=== PATIENT | female | born 1990 | race Caucasian/White ===

== ENCOUNTER → 2016-08-06 | Outpatient (CLI) | payer OTHER ==
[~2016-08-06] MED LIST: ISOVUE-370 76% 100ML VIAL (Q9967) As Ordered ONE
--- NOTE | 2016-08-06 14:18 | REP ---
HYSTEROSALPINGOGRAM: Hysterosalpingogram is performed. Contrast is injected. Spot radiographs are obtained. The uterine cavity demonstrates no definite filling defect. Uterus has an arcuate configuration. There is free flow of contrast through both nondilated fallopian tubes. There is free intraperitoneal spillage bilaterally indicating bilateral fallopian tube patency. IMPRESSION: Arcuate type uterus. Patent fallopian tubes. 30 seconds fluoroscopy time utilized. Signed by Gaurang Cornejo MD 08/06/2016 04:48 P
--- NOTE | 2016-08-12 20:44 | RO ---
DATE OF PROCEDURE: 08/06/2016 PREOPERATIVE DIAGNOSIS: Infertility. POSTOPERATIVE DIAGNOSIS: Infertility. OPERATION PROPOSED: Hysterosalpingogram. OPERATION PERFORMED: Hysterosalpingogram. SURGEON: Dr. Den Rosas LABOR RELATIONS TEACHER: ANESTHESIA: DESCRIPTION OF PROCEDURE: After adequate explanation to the patient and time-out the regarding the procedure, the patient was placed in lithotomy position. A sterile speculum was placed in the vagina, cleansing the cervix and the vagina with Hibiclens. A single-tooth tenaculum on the anterior lip of the cervix. Uterus sounded to depth of 6 cm. The Bennett bulb with dye insufflation was placed into the uterine cavity. We then did a hysterosalpingogram with radiology taking the films, found that both tubes were patent. There appeared to be possibly a subseptate-type uterus or just an indentation in the fundus. The rest of the anatomy appeared to be normal. The Bennett catheter was removed from the cervix as were all the instruments. Minimal amount of bleeding, and the patient sent home to be followed up by her practitioner. Copy To: Cheyanne ARROYO
== END ==
LOC: M RADPRO 11:55
PROVIDERS: ATTEND Obstetrics & Gynecology
DX: N97.9 Female infertility, unspecified (principal); Q51.810 Arcuate uterus
CPT/HCPCS: 58340; 74740; Q9967